=== PATIENT | male | born 1980 | race African-American/Black ===

== ENCOUNTER 2023-07-05 14:20 | Emergency (ER) | payer MEDICAID ==
[~2023-07-05] VITALS: Ht 167.6 cm; Wt 62.6 kg
[2023-07-05 15:24] VITALS: BP 110/78; TEMP 98.7; O2SAT 98
== END 2023-07-05 15:24 | disposition home or self-care (01) ==
LOC: ER 14:20
DX: F52.4 Premature ejaculation (principal); Z60.2 Problems related to living alone